=== PATIENT | male | born 1965 | race American Indian/Alaskan Native ===

== ENCOUNTER 2021-05-29 13:56 | Emergency (ER) | payer MEDICAID ==
[2021-05-29] MEDS ORDERED: SODIUM CHLORIDE 0.9% 1000 ML 2,000 ML IV ONE (15:23)
[2021-05-29] MEDS ORDERED: INSULIN REGULAR, HUMAN 100 UNITS/1 ML IV ONE (15:24)
--- NOTE | 2021-05-29 15:28 | Event Note ---
ED Screening Note Date of service: 05/29/21 Time: 15:25 ED Screening Note: 56-year-old -[place] male presents to the emergency room complaining of neck pain body aches and elevated blood sugar. Patient states he was diagnosed with diabetes about a year and a half ago. Patient currently does not have a primary care provider and reports he goes to [facility] ER to get his prescriptions refilled. Patient does admit that he has had increased urination and had nausea and vomiting yesterday. Patient states that he takes that shot 4 times a day. Patient's reports that he had broke his neck a few years ago. Patient complains of neck pain as well. Reported blood sugar 448 in triage This initial assessment/diagnostic orders/clinical plan/treatment(s) is/are subject to change based on patients health status, clinical progression and re- assessment by fellow clinical providers in the ED. Further treatment and workup at subsequent clinical providers discretion. Patient/guardian urged not to elope from the ED as their condition may be serious if not clinically assessed and managed. Initial orders include: DKA protocol ordered
[2021-05-29 15:48] LABS: Basophils # (Auto) 0.1 K/mm3 (0.0-0.1); Basophils % (Auto) 0.8 % (0.0-1.8); Eosinophils # (Auto) 0.1 K/mm3 (0.0-0.4); Eosinophils % (Auto) 1.4 % (0.0-4.3); Hematocrit 37.2 % (35.5-45.6); Hemoglobin 12.2 gm/dl (11.8-15.2); Lymphocytes # (Auto) 1.4 K/mm3 (1.2-5.4); Lymphocytes % (Auto) 20.8 % (13.4-35.0); Mean Corpuscular HGB Conc 33 % (32-34); Mean Corpuscular Volume 99 fl (84-94); Monocytes # (Auto) 0.6 K/mm3 (0.0-0.8); Monocytes % (Auto) 9.1 % (0.0-7.3); Platelet Count 325 K/mm3 (140-440); Red Blood Count 3.76 M/mm3 (3.65-5.03); Red Cell Distribution Width 12.5 % (13.2-15.2)
[2021-05-29 16:07] LABS: Alanine Aminotransferase 11 units/L (7-56); Albumin 4.3 g/dL (3.9-5); Blood Urea Nitrogen 10 mg/dL (9-20); Calcium 9.5 mg/dL (8.4-10.2); Hemolysis Index 287
[2021-05-29 16:10] LABS: BUN/Creatinine Ratio 17
--- NOTE | 2021-05-29 16:54 | Emergency Department Report ---
ED General Adult HPI - General Chief complaint: Hyperglycemia Stated complaint: HIGH BLOOD SUGAR/HEADACHE Time Seen by Provider: 05/29/21 16:22 Source: patient, EMS ( EMS documentation not available at time of chart dictation ), RN notes reviewed Mode of arrival: Stretcher Limitations: No Limitations - History of Present Illness Initial comments: The patient is a 56-year-old gentleman. He has a history of diabetes, and history of cervical spine repair, distant, secondary to trauma. The patient presents to the ER today with a complaint of headache, paraspinal neck pain, hyperglycemia, swollen glands and sore throat. The headache is present for a few days. It is occipital and temporal. The headache is not sudden or thunderclap in nature. The headache is not maximal in intensity. The headache is described as waxing and waning. The headache is not described as the worst headache of his life. It is not associated with blurry vision. There is no dysphagia. There is no dental pain. No fevers or chills. No loss of taste or smell. Neck pain is paracervical, and trapezius. It is throbbing and aching. It increases with palpation and range of motion. It decreases with rest. The patient states the neck pain is chronic. He reports he has a distant history of cervical spine injury, with surgical repair at [place]. Denies chest pain, abdominal pain, vomiting, diarrhea, extremity weakness/numbness, ataxia, and dysuria. He also reports compliance with his diabetic medications and diabetic diet. However, he feels like his blood sugar is "high." -: Gradual, days(s) Location: head, neck Severity scale (0 -10): 10 Consistency: other Improves with: other Worsens with: other - Related Data Previous Rx's Medication Instructions Recorded Last Taken Type Acetaminophen [Non-Aspirin Extra 500 mg PO Q6HR PRN #30 tablet 05/29/21 Unknown Rx Strength] Ibuprofen [Motrin] 400 mg PO Q8H PRN #30 tablet 05/29/21 Unknown Rx Metoclopramide [Reglan] 10 mg PO QID PRN #30 tablet 05/29/21 Unknown Rx Allergies Allergy/AdvReac Type Severity Reaction Status Date / Time No Known Allergies Allergy Unverified 05/29/21 14:12 ED Review of Systems ROS: Stated complaint: HIGH BLOOD SUGAR/HEADACHE Other details as noted in HPI Constitutional: denies: fever Eyes: denies: eye discharge ENT: throat pain. denies: epistaxis Respiratory: denies: cough Cardiovascular: denies: chest pain Gastrointestinal: denies: abdominal pain Genitourinary: denies: dysuria Musculoskeletal: myalgia Neurological: headache. denies: weakness ED Past Medical Hx - Medications Home Medications: Home Medications Medication Instructions Recorded Confirmed Last Taken Type Acetaminophen [Non-Aspirin Extra 500 mg PO Q6HR PRN #30 tablet 05/29/21 Unknown Rx Strength] Ibuprofen [Motrin] 400 mg PO Q8H PRN #30 tablet 05/29/21 Unknown Rx Metoclopramide [Reglan] 10 mg PO QID PRN #30 tablet 05/29/21 Unknown Rx ED Physical Exam - General Limitations: No Limitations General appearance: alert, in no apparent distress - Head Head exam: Present: atraumatic, normocephalic - Eye Eye exam: Present: normal appearance, EOMI. Absent: nystagmus - ENT ENT exam: Present: normal exam, normal orophraynx, mucous membranes moist, normal external ear exam, other (Patient has poor dentition) - Neck Neck exam: Present: normal inspection, tenderness (There is paracervical tenderness.), full ROM, lymphadenopathy. Absent: meningismus - Respiratory Respiratory exam: Present: normal lung sounds bilaterally. Absent: respiratory distress, wheezes, rales, rhonchi, stridor, decreased breath sounds - Cardiovascular Cardiovascular Exam: Present: regular rate, normal rhythm, normal heart sounds. Absent: bradycardia, tachycardia, irregular rhythm, systolic murmur, diastolic murmur, rubs, gallop - GI/Abdominal GI/Abdominal exam: Present: soft. Absent: distended, tenderness, guarding, rebound, rigid, pulsatile mass - Rectal Rectal exam: Present: deferred - Extremities Exam Extremities exam: Present: normal inspection, full ROM, other (2+ pulses noted in the bilateral upper and lower extremities. There is no palpable cord. negative Homans sign. Muscular compartments are soft. The pelvis is stable.). Absent: pedal edema, calf tenderness - Back Exam Back exam: Present: normal inspection, muscle spasm, paraspinal tenderness. Absent: tenderness, vertebral tenderness - Neurological Exam Neurological exam: Present: alert, oriented X3, reflexes normal, other (No facial droop. Tongue midline. Extraocular movements intact bilaterally. Facial sensation intact to light touch in V1, V2, V3 distribution bilaterally. 5 and a 5 strength in 4 extremities. Sensation intact to light touch in 4 extremities.). Absent: motor sensory deficit - Psychiatric Psychiatric exam: Present: normal affect, normal mood - Skin Skin exam: Present: warm, dry, intact, normal color. Absent: rash ED Course Vital Signs 05/29/21 05/29/21 14:09 19:30 Temperature 98.5 F Pulse Rate 86 79 Respiratory 18 12 Rate Blood Pressure 128/80 Blood Pressure 134/77 [Left] O2 Sat by Pulse 100 98 Oximetry ED Medical Decision Making - Lab Data Result diagrams: 05/29/21 15:28 05/29/21 18:52 Vital Signs 05/29/21 05/29/21 14:09 19:30 Temperature 98.5 F Pulse Rate 86 79 Respiratory 18 12 Rate Blood Pressure 128/80 Blood Pressure 134/77 [Left] O2 Sat by Pulse 100 98 Oximetry Lab Results 05/29/21 05/29/21 05/29/21 Range/Units 15:22 15:28 15:28 WBC 6.6 (4.5-11.0) K/mm3 RBC 3.76 (3.65-5.03) M/mm3 Hgb 12.2 (11.8-15.2) gm/dl Hct 37.2 (35.5-45.6) % MCV 99 H (84-94) fl MCH 33 H (28-32) pg MCHC 33 (32-34) % RDW 12.5 L (13.2-15.2) % Plt Count 325 (140-440) K/mm3 Lymph % (Auto) 20.8 (13.4-35.0) % [place] % (Auto) 9.1 H (0.0-7.3) % Eos % (Auto) 1.4 (0.0-4.3) % Baso % (Auto) 0.8 (0.0-1.8) % Lymph # (Auto) 1.4 (1.2-5.4) K/mm3 [place] # (Auto) 0.6 (0.0-0.8) K/mm3 Eos # (Auto) 0.1 (0.0-0.4) K/mm3 Baso # (Auto) 0.1 (0.0-0.1) K/mm3 Seg Neutrophils % 67.9 (40.0-70.0) % Seg Neutrophils # 4.5 (1.8-7.7) K/mm3 VBG pH (7.320-7.420) Sodium 133 L (137-145) mmol/L Potassium 6.4 H* (3.6-5.0) mmol/L Chloride 94.0 L (98-107) mmol/L Carbon Dioxide 24 (22-30) mmol/L Anion Gap 21 mmol/L BUN 10 (9-20) mg/dL Creatinine 0.6 L (0.8-1.3) mg/dL Estimated GFR > 60 ml/min BUN/Creatinine Ratio 17 % Glucose 458 H (75-100) mg/dL Calcium 9.5 (8.4-10.2) mg/dL Phosphorus (2.5-4.5) mg/dL Magnesium (1.7-2.3) mg/dL Total Bilirubin 0.20 (0.1-1.2) mg/dL AST 26 (5-40) units/L ALT 11 (7-56) units/L Alkaline Phosphatase 125 (35-129) units/L Total Protein 8.0 (6.3-8.2) g/dL Albumin 4.3 (3.9-5) g/dL Albumin/Globulin Ratio 1.2 % Lipase 43 (13-60) units/L Urine Color Straw (Yellow) Urine Turbidity Clear (Clear) Urine pH 6.0 (5.0-7.0) Ur Specific [place] 1.030 (1.003-1.030) Urine Protein <15 mg/dl (Negative) mg/dL Urine Glucose (UA) >=500 (Negative) mg/dL Urine Ketones 20 (Negative) mg/dL Urine Blood Neg (Negative) Urine Nitrite Neg (Negative) Urine Bilirubin Neg (Negative) Urine Urobilinogen < 2.0 (<2.0) mg/dL Ur Leukocyte Esterase Neg (Negative) Urine WBC (Auto) < 1.0 (0.0-6.0) /HPF Urine RBC (Auto) 1.0 (0.0-6.0) /HPF U Epithel Cells (Auto) < 1.0 (0-13.0) /HPF 05/29/21 05/29/21 05/29/21 Range/Units 15:28 15:38 18:52 WBC (4.5-11.0) K/mm3 RBC (3.65-5.03) M/mm3 Hgb (11.8-15.2) gm/dl Hct (35.5-45.6) % MCV (84-94) fl MCH (28-32) pg MCHC (32-34) % RDW (13.2-15.2) % Plt Count (140-440) K/mm3 Lymph % (Auto) (13.4-35.0) % [place] % (Auto) (0.0-7.3) % Eos % (Auto) (0.0-4.3) % Baso % (Auto) (0.0-1.8) % Lymph # (Auto) (1.2-5.4) K/mm3 [place] # (Auto) (0.0-0.8) K/mm3 Eos # (Auto) (0.0-0.4) K/mm3 Baso # (Auto) (0.0-0.1) K/mm3 Seg Neutrophils % (40.0-70.0) % Seg Neutrophils # (1.8-7.7) K/mm3 VBG pH 7.368 (7.320-7.420) Sodium 139 (137-145) mmol/L Potassium 4.6 D (3.6-5.0) mmol/L Chloride 99.4 (98-107) mmol/L Carbon Dioxide 26 (22-30) mmol/L Anion Gap 18 mmol/L BUN 9 (9-20) mg/dL Creatinine 0.4 L (0.8-1.3) mg/dL Estimated GFR > 60 ml/min BUN/Creatinine Ratio 23 % Glucose 269 H (75-100) mg/dL Calcium 9.2 (8.4-10.2) mg/dL Phosphorus 3.60 (2.5-4.5) mg/dL Magnesium 2.20 (1.7-2.3) mg/dL Total Bilirubin (0.1-1.2) mg/dL AST (5-40) units/L ALT (7-56) units/L Alkaline Phosphatase (35-129) units/L Total Protein (6.3-8.2) g/dL Albumin (3.9-5) g/dL Albumin/Globulin Ratio % Lipase (13-60) units/L Urine Color (Yellow) Urine Turbidity (Clear) Urine pH (5.0-7.0) Ur Specific [place] (1.003-1.030) Urine Protein (Negative) mg/dL Urine Glucose (UA) (Negative) mg/dL Urine Ketones (Negative) mg/dL Urine Blood (Negative) Urine Nitrite (Negative) Urine Bilirubin (Negative) Urine Urobilinogen (<2.0) mg/dL Ur Leukocyte Esterase (Negative) Urine WBC (Auto) (0.0-6.0) /HPF Urine RBC (Auto) (0.0-6.0) /HPF U Epithel Cells (Auto) (0-13.0) /HPF - Radiology Data Radiology results: pending, report reviewed, image reviewed CT head/brain wo con INDICATION: headache/neck pain. TECHNIQUE: Routine CT head. All CT scans at this location are performed using CT dose reduction for ALARA by means of automated exposure control. COMPARISON: None. FINDINGS: Intracranial: Oconnell-white matter differentiation is maintained. No intracranial hemorrhage. No extra axial collection. No hydrocephalus. No herniation. Sinuses: Paranasal sinuses and mastoid air cells are essentially clear. Orbits: Globes are intact. Calvarium: No acute fracture. IMPRESSION: 1. No acute intracranial abnormality. Signer Name: José Miguel Green MD Signed: 05/29/2021 6:47 PM Workstation Name: [id number] CT cervical spine wo con INDICATION: headache/neck pain. TECHNIQUE: Axial CT images of the cervical spine were obtained. Sagittal and coronal reformatted images were produced. All CT scans at this location are performed using CT dose reduction for ALARA by means of automated exposure control. COMPARISON: None available. FINDINGS: ALIGNMENT: Normal alignment. VERTEBRAE: No fracture. Vertebral body heights are preserved. C1 and C2 are congruent. SPONDYLOSIS: Postoperative changes from C4-C5 ACDF. Incomplete osseous fusion across the disc space. No abnormal lucency surrounds hardware. Hardware is intact. No high- grade osseous spinal canal or foraminal stenosis. SOFT TISSUES: Diffuse mild spondylosis. ADDITIONAL FINDINGS: No significant additional findings. IMPRESSION: 1. No fracture of the cervical spine. Signer Name: José Miguel Green MD Signed: 05/29/2021 6:55 PM Workstation Name: [id number] - Medical Decision Making Differential diagnosis, including but not limited to: Migraine headache, tension headache, cluster headache, trapezius pain, trapezius strain, hyperglycemia, dehydration Assessment and plan: 56-year-old gentleman with a GCS of 15, with a history of nontraumatic headache, neck pain, and associated hyperglycemia. He has a GCS of 15. He has an NIH score of 0. He has no nuchal rigidity, fever, and does not describe the heada benja as thunderclap or sudden in nature. His initial laboratory studies demonstrate hyperglycemia, and hyperkalemia, although his potassium was hemolyzed as per verbal report from the lab. He was medicated aggressively with IV fluids, insulin, Reglan, Benadryl, acetaminophen, and intranasal lidocaine. His symptoms markedly improved, he is now resting comfortably on his stretcher, in no acute distress, sleeping, with an unchanged neurologic examination, and may be discharged to follow-up with o utpatient primary care for his chronic hyperglycemia. Critical care attestation.: If time is entered above; I have spent that time in minutes in the direct care of this critically ill patient, excluding procedure time. ED Disposition Clinical Impression: Hyperglycemia, Headache, Neck pain Disposition: 01 HOME / SELF CARE / HOMELESS Is pt being admited?: No Does the pt Need Aspirin: No Condition: Good Instructions: Hyperglycemia, Neck Exercises Additional Instructions: Please continue current outpatient medications. Please remain compliant with an outpatient diabetic diet. Take the pain medications as needed and directed. Recommend that the patient follow-up with an outpatient primary care doctor in the next 5 to 7 days for a repeat checkup and evaluation, and repeat glucose evaluation. Please drink 4 to 6 cups of water per day. Patient may alternate ice packs and heat packs as needed for physical pain. Please return to the emergency room right away with new pain, worsened pain, migration of pain, projectile vomiting, change in mental status, confusion, inability to tolerate liquid feeds, extremity weakness/numbness, unsteady gait, change in mental status, or any new, worsened or different symptoms not present on the initial emergency room evaluation. Referrals: [facility] [Outside] - 3-5 Days [facility] [Outside] - 3-5 Days
[2021-05-29] MEDS ORDERED: METOCLOPRAMIDE 10 MG/2 ML INJ IV ONE (17:56)
[2021-05-29] MEDS ORDERED: ACETAMINOPHEN 325 MG TAB PO STA (17:56)
[2021-05-29] MEDS ORDERED: diphenhydrAMINE 50 MG/ML VIAL IV ONE (17:56)
[2021-05-29] MEDS ORDERED: LIDOCAINE (4%) 40 MG/ML TOPICAL SOLN 50 ML BOTTLE TP ONE (17:56)
[2021-05-29] MEDS ORDERED: LACTATED RINGERS 1,000 ML IV ONE (17:57)
[2021-05-29 19:04] LABS: Bilirubin,Urine NEG (Negative); Blood,Urine NEG (Negative); Color,Urine Straw (Yellow); Protein,Urine <15 mg/dL mg/dL (Negative); Urobilinogen,Urine < 2.0 mg/dL (<2.0); WBC,Urine < 1.0 /HPF (0.0-6.0)
[2021-05-29 19:45] LABS: Blood Urea Nitrogen 9 mg/dL (9-20); Calcium 9.2 mg/dL (8.4-10.2); Hemolysis Index 84
[2021-05-29 19:50] LABS: BUN/Creatinine Ratio 23
--- NOTE | 2021-05-29 19:51 | Cat Scan Report ---
CT head/brain wo con INDICATION: headache/neck pain. TECHNIQUE: Routine CT head. All CT scans at this location are performed using CT dose reduction for A SUKHJINDER by means of automated exposure control. COMPARISON: None. FINDINGS: Intracranial: Oconnell-white matter differentiation is maintained. No intracranial hemorrhage. No extra a xial collection. No hydrocephalus. No herniation. Sinuses: Paranasal sinuses and mastoid air cells are essentially clear. Orbits: Globes are intact. Calvarium: No acute fracture. IMPRESSION: 1. No acute intracranial abnormality. Signer Name: José Miguel Green MD Signed: 05/29/2021 7:47 PM Workstation Name: [id number]
--- NOTE | 2021-05-29 19:59 | Cat Scan Report ---
CT cervical spine wo con INDICATION: headache/neck pain. TECHNIQUE: Axial CT images of the cervical spine were obtained. Sagittal and coronal reformatted images were pro duced. All CT scans at this location are performed using CT dose reduction for ALARA by means of auto mated exposure control. COMPARISON: None available. FINDINGS: ALIGNMENT: Normal alignment. VERTEBRAE: No fracture. Vertebral body heights are preserved. C1 and C2 are congruent. SPONDYLOSIS: Postoperative changes from C4-C5 ACDF. Incomplete osseous fusion across the disc space. No abnormal lucency surrounds hardware. Hardware is intact. No high-grade osseous spinal canal or for aminal stenosis. SOFT TISSUES: Diffuse mild spondylosis. ADDITIONAL FINDINGS: No significant additional findings. IMPRESSION: 1. No fracture of the cervical spine. Signer Name: José Miguel Green MD Signed: 05/29/2021 7:55 PM Workstation Name: [id number]
[2021-05-29 22:51] VITALS: BP 117/78
== END 2021-05-29 22:52 | disposition home or self-care (01) ==
LOC: ED 13:56
DX: E11.65 Type 2 diabetes mellitus with hyperglycemia (principal); R51.9 Headache, unspecified; M54.2 Cervicalgia; Z98.890 Other specified postprocedural states
CPT/HCPCS: 36415; 70450; 72125; 80048; 80053; 81001; 82010; 82805; 83690; 83735; 84100; 85025; 96361; 96374; 96375; 99284; J1200; J2765; J7030; J1815